=== PATIENT | male | born 1975 | race Native Hawaiian/Other Pacific Islander ===

== ENCOUNTER 2018-11-26 18:22 | Emergency (ER) | payer OTHER ==
[~2018-11-26] VITALS: Ht 177.8 cm; Wt 117.9 kg
[2018-11-26] MEDS ORDERED: ASPIRIN 81 LOW81 MG PO (18:46)
[2018-11-26 19:33] LABS: PLATELET COUNT 242 K/uL (142-355)
[2018-11-26 19:35] LABS: POTASSIUM 4.3 mmol/L (3.6-5.2)
[2018-11-26 22:36] VITALS: BP 113/78; TEMP 97.9
== END 2018-11-26 22:36 | disposition home or self-care (01) ==
LOC: ED 18:22
PROVIDERS: Family Medicine
DX: R10.12 Left upper quadrant pain (principal); L08.89 Other specified local infections of the skin and subcutaneous tissue; D72.829 Elevated white blood cell count, unspecified
CPT/HCPCS: 36415; 80053; 81000; 85027; 96374; 99284; J1885; Q9963

== ENCOUNTER 2019-03-13 19:59 | Outpatient (CLI) | payer BC ==
[~2019-03-13 19:59] MED LIST: ASPIRIN 81 LOW81 MG PO
== END 2019-03-13 22:34 | disposition home or self-care (01) ==
LOC: RAD 19:59
DX: M54.5 Low back pain (principal)